=== PATIENT | female | born 1960 | race Caucasian/White ===

== ENCOUNTER 2016-09-06 08:18 | Emergency (ER) | payer OTHER ==
[~2016-09-06] VITALS: Ht 157.5 cm; Wt 72.6 kg
[~2016-09-06 08:18] MED LIST: AMITIZA24 MCG PO; AMITIZA8 MCG PO; ANTIVERT 25MG #1 PAC PO; ASPIR 8181 MG PO; BENZTROPINE1 MG PO; BUPROPION HCL150 M2 PO; CALTRATE 600600 MG PO; CLONAZEPAM1 MG PO; GOLYTELY1 PDR PO; LEVOTHYROXIN0.088 MG PO; LOVAZA1 GM PO; MIRALAX17 GM PO; MULTIVITAMIN1 TAB PO; PREDNISONE 20MG20 MG PO; PROBIOTIC FORMU1 CA1 PO; RISPERIDONE0.5 MG PO; RISPERIDONE3 MG PO; SERTRALINE HCL50 MG PO; VITAMIN B122500 MC1 PO; VITAMIN C1000 M1 PO; VITAMIN D31000 UNI2 PO; ZYRTEC ALLERGY10 MG PO
--- NOTE | 2016-09-06 09:52 | ED GI/GU/ABDOMINAL COMPLAINT ---
History of Present Illness General Chief Complaint: General Adult Stated Complaint: N/V WITH CHILLS AND FEVER Source: patient, old records Exam Limitations: no limitations Vital Signs & Intake/Output Vital Signs & Intake/Output Vital Signs Date Time Temp Pulse Resp B/P Pulse O2 O2 Flow FiO2 Ox Delivery Rate 09/06 1149 96.5 66 17 113/72 95 Room Air 09/06 1029 97.1 74 18 122/90 95 09/06 0822 98.0 73 20 131/84 98 Room Air Allergies Uncoded Allergies: DUST (Mild, STUFFY/RUNNY NOSE 06/11/15) Reconcile Medications Ascorbic Acid (Vitamin C) 1,000 MG TAB 1 TAB PO DAILY SUPPLEMENT (Reported) Aspirin (Ecotrin) 81 MG ECT 1 TAB PO DAILY HEART HEALTH (Reported) Benztropine Mesylate (Benztropine) 1 MG TAB 1 TAB PO BID MENTAL HEALTH ( Reported) [BORAGE OIL] 1,000 MG PO BID SUPPLEMENT (Reported) BUPROPION HCL (Bupropion XL) 150 MG T24 1 TAB PO DAILY MENTAL HEALTH ( Reported) CETIRIZINE HCL (Zyrtec) 10 MG SGL 1 CAP PO DAILY ALLERGIES (Reported) Cholecalciferol (Vitamin D3) 1,000 UNIT TABLET 1 TAB PO DAILY SUPPLEMENT ( Reported) Chromium Picolinate 200 MCG TABLET 1 TAB PO BID SUPPLEMENT (Reported) Cyanocobalamin (Vitamin B-12) (Vitamin B12) 2,500 MCG TABLET 1 TAB PO DAILY SUPPLEMENT (Reported) Dicyclomine Hydrochloride (Bentyl) 10 MG CAPSULE 1 CAP PO TID pain Levothyroxine Sodium (Levothyroxine) 0.088 MG TAB 1 TAB PO DAILY THYROID ( Reported) Linaclotide (Linzess) 290 MCG CAPSULE 1 CAP PO DAILY GI (Reported) Lubiprostone (Amitiza) 24 MCG CAP 1 CAP PO QAM GI (Reported) Lubiprostone (Amitiza) 8 MCG CAP 1 CAP PO QPM GI (Reported) Qfdfy-1-Sdye Ethyl Esters (Lovaza) 1 GM CAP 1 CAP PO TID CHOLESTEROL ( Reported) Ondansetron HCl (Zofran) 4 MG TABLET 1 TAB PO Q6-8P PRN nausea Polyethylene Glycol 3350 (Miralax) 17 GM PWD 17 GM PO BID GI (Reported) mix with water, juice, soda, coffee or tea Risperidone 3 MG TAB 1 TAB PO QPM MENTAL HEALTH (Reported) Risperidone 0.5 MG TAB 1 TAB PO QPM MENTAL HEALTH (Reported) Sertraline HCl 50 MG TABLET 1 TAB PO DAILY MENTAL HEALTH (Reported) Triage Note: PT C/O CHILLS WITH N/V X 2 DAYS. Triage Nurses Notes Reviewed? yes ? n Is pt currently ? No Onset: Abrupt Duration: day(s): (2), constant Timing: remote history Quality/Severity: aching, cramping, bloated Severity Numbers: 5 Location: generalized abdomen Radiation: no radiation Activities at Onset: none Prior Abdominal Problems: similar symptoms No Modifying Factors: none Associated Symptoms: nausea HPI: 55-year-old female with history of irritable bowel, chronic constipation presents to the emergency room today for evaluation complaining of multiple episodes of nausea for the past 2 days. She denies any vomiting. She is reporting to generalized abdominal bloating and constipation has been going on for the past 3 days. She is currently on linzess, and is scheduled to see her condenser tester on Sunday however states that she came in today after she had subjective chills last night no fevers or diaphoresis. She denies any black or bloody stools or last bowel movement was yesterday and normal for her age she denies any urinary complaints. No sick contacts with similar symptoms she has not taken anything for her pain (KRIS PAULINO) Past History Travel History Traveled to [place] past 21 day No Medical History Any Pertinent Medical History? see below for history Neurological: VASO VAGAL EPISODES EENT: NONE Cardiovascular: PACEMAKER BRADYCARDIA Respiratory: NONE Gastrointestinal: irritable bowel syndrome Hepatic: NONE Renal: NONE Musculoskeletal: NONE Psychiatric: depression Endocrine: hypothyroidism Blood Disorders: NONE Cancer(s): NONE COUNTY MANAGER/Reproductive: NONE History of MRSA: No History of VRE: No History of CDIFF: No Surgical History Surgical History: cholecystectomy Psychosocial History Who do you live with Spouse Services at Home Nursing What is your primary language Chinese Tobacco Use: Never used Family History Family History, If Any: No Known Family History. Hx Contributory? No (KRIS PAULINO) Review of Systems Review of Systems Constitutional: Reports: see HPI. All Other Systems: Reviewed and Negative Comments Review of systems: See HPI, All other systems negative. Constitutional, no chills no fever, no malaise HEENT: no sore throat no congestion, no ear pain Cardiovascular: No chest pain , no palpitation Skin, no jaundice no rashes, no change in skin Respiratory: No dyspnea no cough no sputum GI: nausea no vomiting, no diarrhea, constipation : No dysuria No hematuria, Muscle skeletal: No joint pain, no joint swelling, no back pain, no neck pain, Neurologic: no headache Psych: No stress Heme/endocrine: No bruising no bleeding Immunology: No lymphadenopathy (KRIS PAULINO) Physical Exam Physical Exam General Appearance: well developed/nourished, alert, awake Gastrointestinal: normal bowel sounds Comments: Well-developed well-nourished person in no acute distress HEENT: Normal EENT exam; PERRL, EOMI, HEAD is atraumatic. moist mucous membranes. Neck: Supple, normal range of motion Back: Nontender, no CVA tenderness. Full range of motion Cardiovascular: Regular rate and rhythms no murmurs rubs Respiratory: No respiratory distress. Patient speaking in full complete sentences. Breath sounds clear to auscultation bilaterally: NO W/R/R Abdomen: Soft, nontender nondistended, no appreciable organomegaly. Normal bowel sounds. No rebound/guarding, No appreciable enlargement of the abdominal aorta, No ascites. Extremity: No edema, full range of motion of extremities Neuro: Alert oriented x3, motor sensory normal,no focal neurologic abnormalities. Skin: No appreciable rash on exposed skin, skin is warm and dry. Psych: Mood and affect is normal, memory and judgment is normal. Core Measures ACS in differential dx? No Severe Sepsis Present: No Septic Shock Present: No (KRIS PAULINO) Progress Differential Diagnosis: AAA, AMI, appendicitis, biliary colic, bowel obstruction , colon cancer, cholecystitis, diverticulitis, esophageal varices, gastritis, hepatitis, hernia, ischemic bowel, inflamm bowel dis, kidney stone, Lorelei-Jaimie tear, pancreatitis, peptic ulcer, PUD/GERD, perforated viscous, SBO, UTI/pyelo Plan of Care: Orders Procedure Date/time Status Saline Lock 09/06 1017 Active URINALYSIS 09/06 1017 Complete COMPREHENSIVE METABOLIC PANEL 09/06 1017 Complete CBC WITHOUT DIFFERENTIAL 09/06 1017 Complete Laboratory Tests 09/06/16 1106: Urinalysis LIGHT H, Urine Color YEL, Urine Clarity CLEAR, Urine pH 6.0, Ur Specific Pitkin 1.025, Urine Protein NEG, Urine Ketones NEG, Urine Nitrite NEG, Urine Bilirubin NEG, Urine Urobilinogen 0.2, Ur Leukocyte Esterase TRACE H, Ur Microscopic SEDIMENT EXAMINED, Urine WBC 1-3 H, Ur Epithelial Cells RARE, Urine Hemoglobin NEG, Urine Glucose NEG 09/06/16 1026: Anion Gap 14, Estimated GFR 57 L, BUN/Creatinine Ratio 11.0, Glucose 110 H, Calcium 9.6, Total Bilirubin 0.8, AST 27, ALT 33, Alkaline Phosphatase 91, Total Protein 7.1, Albumin 4.6, Globulin 2.5, Albumin/Globulin Ratio 1.8, CBC w Diff NO MAN DIFF REQ, RBC 5.10, MCV 88.5, MCH 30.0, RDW 13.0, MPV 8.8, Gran % 53.7, Lymphocytes % 38.3, Monocytes % 6.0, Eosinophils % 1.2, Basophils % 0.8, Absolute Granulocytes 2.7, Absolute Lymphocytes 1.9, Absolute Monocytes 0.3, Absolute Eosinophils 0.1, Absolute Basophils 0, PUBS MCHC 33.9 Labs ordered old records reviewed patient medicated with IV fluids Zofran 4 IV case discussed with Dr. Arroyo Repeat evaluation patient resting calmly discussed at length all of her lab results, pending x-ray 09/06/2016 11:43:12 AM on repeat evaluation patient resting comfortably, D/W her her xray results, abd remains soft, nontender. She's had no episodes of vomiting she is declining anything else for her constipation. Advised that she follow up with her primary care physician is also her condenser tester already on scheduled for Sunday per schedule for Zofran and Bentyl provided. She will return anytime sooner if symptoms worsen she feels comfortable with plan (EILEEN HOOKS,KRIS) Diagnostic Imaging: Viewed by Me: Radiology Read. Discussed w/RAD: Radiology Read. Radiology Impression: PATIENT: JAMAL HANDY PRESENT AGE: 55 PATIENT ACCOUNT NO: [id number] : 59 LOCATION: [facility] ORDERING PHYSICIAN: KRIS HOOKS SERVICE DATE: 09/06/161017 EXAM TYPE: RAD - [id number] VIEW EXAMINATION: XR ABDOMEN CLINICAL INDICATION: Abdominal pain with constipation and nausea. COMPARISON: CT from 10/15/2015 TECHNIQUE: One view, 2 images of the abdomen. FINDINGS: Gas-filled bowel is seen in the central abdomen with the appearance of:. Moderate stool throughout the visualized colon. Gas is seen in the rectum. No evidence of bowel obstruction. The lung bases are clear. Surgical clips are seen in the right upper quadrant. Mild degenerative changes of the spine. Cardiac pacer leads are partially visualized. IMPRESSION: Mild gaseous distention of portions of the colon with moderate stool burden. No evidence of small bowel obstruction. DICTATED BY: DAIANA BEAN MD DATE/TIME DICTATED:09/06/161055 SHEET METAL ASSEMBLER AND RIVETER: VANDA DATE/TIME TRANSCRIBED:09/06/161055 CONFIDENTIAL, DO NOT COPY WITHOUT APPROPRIATE AUTHORIZATION. <Electronically signed in Other Vendor System> SIGNED BY: DAAINA BEAN MD 09/06/16 1101 Initial ED EKG: none (KRIS PAULINO) Departure Departure Time of Disposition: 1130 Disposition: HOME OR SELF CARE Condition: Stable Clinical Impression Primary Impression: Constipation Secondary Impressions: Nausea Referrals: AGUILAR FROST,NIRALI Purvis (PCP/Family) Additional Instructions: Follow-up with your condenser tester as scheduled on Sunday. Zofran for nausea. Bentyl for pain. Continue using your medications as otherwise directed return anytime sooner with any concerns Departure Forms: Customer Survey General Discharge Information Prescriptions: Current Visit Scripts Dicyclomine Hydrochloride (Bentyl) 1 CAP PO TID #15 CAP Ondansetron HCl (Zofran) 1 TAB PO Q6-8P PRN nausea #10 TAB (KRIS PAULINO) PA/BENEFIT SPECIALIST Co-Sign Statement Statement: ED Attending supervision documentation- [] I saw and evaluated the patient. I have also reviewed all the pertinent lab results and diagnostic results. I agree with the findings and the plan of care as documented in the PA's/BENEFIT SPECIALIST's documentation. [X] I have reviewed the ED Record and agree with the PA's/BENEFIT SPECIALIST's documentation. [] Additions or exceptions (if any) to the PAs/BENEFIT SPECIALIST's note and plan are summarized below: [] (DAVID FROST,MELISSA)
[2016-09-06] MEDS ORDERED: LINZESS290 MC1 PO (10:10)
[2016-09-06] MEDS ORDERED: CHROMIUM PICO200 MC2 PO (10:14)
[2016-09-06] MEDS ORDERED: BORAGE OIL PO (10:15)
[2016-09-06 10:43] LABS: ABSOLUTE BASOPHIL COUNT 0 /CUMM (0.0-0.2); ABSOLUTE EOSINOPHIL COUNT 0.1 /CUMM (0.0-0.7); ABSOLUTE GRANULOCYTE CT 2.7 /CUMM (1.4-6.5); ABSOLUTE LYMPH COUNT 1.9 /CUMM (1.2-3.4); ABSOLUTE MONOCYTE COUNT 0.3 /CUMM (0.10-0.60); BASOPHIL % 0.8 % (0.0-2.0); EOSINOPHIL % 1.2 % (0-5); GRANULOCYTE % 53.7 % (42.2-75.2); HEMATOCRIT 45.1 % (37-47); MEAN CORPUSCULAR HGB CONC 33.9 G/DL (33.0-37.0); MEAN CORPUSCULAR VOLUME 88.5 FL (81.0-99.0); MEAN PLATELET VOLUME 8.8 FL (7.4-10.4); PLATELET COUNT 160 /CUMM (130-400)
--- NOTE | 2016-09-06 11:01 | RADIOLOGY REPORT ---
EXAMINATION: XR ABDOMEN CLINICAL INDICATION: Abdominal pain with constipation and nausea. COMPARISON: CT from 10/15/2015 TECHNIQUE: One view, 2 images of the abdomen. FINDINGS: Gas-filled bowel is seen in the central abdomen with the appearance of:. Moderate stool throughout the visualized colon. Gas is seen in the rectum. No evidence of bowel obstruction. The lung bases are clear. Surgical clips are seen in the right upper quadrant. Mild degenerative changes of the spine. Cardiac pacer leads are partially visualized. IMPRESSION: Mild gaseous distention of portions of the colon with moderate stool burden. No evidence of small bowel obstruction.
[2016-09-06] MEDS ORDERED: BENTYL10 M1 PO (11:31)
[2016-09-06] MEDS ORDERED: ZOFRAN4 M2 PO (11:39)
[2016-09-06 11:49] VITALS: BP 113/72
== END 2016-09-06 11:49 ==
LOC: ERH 08:18
PROVIDERS: Physician Assistant Medical
DX: K59.00 Constipation, unspecified (principal); R11.0 Nausea; R50.9 Fever, unspecified; E03.9 Hypothyroidism, unspecified
CPT/HCPCS: 74000; 81001; 96374; J2405